=== PATIENT | male | born 1970 | race Caucasian/White ===

== ENCOUNTER 2016-07-07 12:13 | Inpatient (IN) | payer BC, OTHER ==
[~2016-07-07] VITALS: Ht 185.4 cm; Wt 111.5 kg
[~2016-07-07 12:13] MED LIST: ALBUTEROL0.09 MG/A1 IH; ASPIR-LOW81 MG PO; ATIVAN 0.50.5 MG/TAB PO; BENADRYL25 M1 PO; FLEXERIL10 MG PO; NO HOME MEDICATIONS; PRILOSEC40 MG PO
[2016-07-07] MEDS ORDERED: PROTONIX 40MG T40 MG PO (12:47)
[2016-07-07 12:54] LABS: BASO % 0.2 % (0.0-2.0); EOS % 0.2 % (0-4.0); GRAN # 14.5 (1.4-6.5); GRAN % 89.1 % (42.2-75.2); HEMATOCRIT 44.2 % (42.0-52.0); HEMOGLOBIN 15.6 g/dl (13.5-18.0); LYMPH % 6.1 % (20.0-51.0); MEAN CELL VOLUME 87 fl (80.0-100.0); MEAN CORPUSCULAR HEMOGLOBIN 31 pg (27.0-31.0); MEAN CORPUSCULAR HGB CONC 35 g/dl (33.0-37.0); MEAN PLATELET VOLUME 10.1 fl (7.4-10.4); MONO # 0.7 (0.1-0.6); MONO % 4.1 % (1.7-9.3); PLATELET COUNT 269 K/mm3 (130-400); RED BLOOD COUNT 5.07 M/mm3 (4.20-5.60); REDCELL DISTRIBUTION WIDTH-CV 12.7 % (11.5-14.5); WHITE BLOOD COUNT 16.3 K/mm3 (4.8-10.8)
[2016-07-07 13:08] LABS: ALBUMIN 4.1 gm/dL (3.5-5.0); BILIRUBIN,TOTAL 1.7 mg/dL (0.0-1.0); C-REACTIVE PROTEIN 6.1 mg/dL (0.0-0.9); CALCIUM 8.1 mg/dL (8.4-10.2); CREATININE, serum 0.77 mg/dL (0.66-1.25); POTASSIUM 3.8 mmol/L (3.4-5.0); TOTAL PROTEIN 8.3 gm/dL (6.4-8.2)
[2016-07-07 15:17] VITALS: BP 134/80; PULSE 99; TEMP 98.1
[2016-07-07 15:25] VITALS: BP 134/80; PULSE 101; TEMP 98.1
[2016-07-07 20:04] VITALS: BP 146/86; PULSE 113; TEMP 98.2
[2016-07-07 22:43] LABS: PH 6 (5-8); SQUAMOUS EPITHELIAL None Seen /hpf; URINE APPEARANCE Clear; URINE BACTERIA Rare /hpf; URINE BILIRUBIN Negative (NEGATIVE); URINE BLOOD 2+ (NEGATIVE); URINE COLOR Amber; URINE GLUCOSE 1+ (NEGATIVE); URINE KETONE Trace (NEGATIVE); URINE UROBILINOGEN Negative (NEGATIVE); URINE WBC 0-2 /hpf
[2016-07-07 23:00] VITALS: BP 138/87; PULSE 109; TEMP 98.9
[2016-07-08 03:34] VITALS: BP 138/90; PULSE 108; TEMP 97.1
[2016-07-08 07:35] VITALS: BP 134/72; PULSE 110; TEMP 97.4
[2016-07-08 07:53] LABS: ADJUSTED CALCIUM 7.7 mg/dL (8.4-10.2); ALBUMIN 3.5 gm/dL (3.5-5.0); BILIRUBIN,TOTAL 1.7 mg/dL (0.0-1.0); CALCIUM 7.3 mg/dL (8.4-10.2); CREATININE, serum 0.83 mg/dL (0.66-1.25); POTASSIUM 3.6 mmol/L (3.4-5.0); TOTAL PROTEIN 7.3 gm/dL (6.4-8.2)
[2016-07-08 07:56] LABS: BASO # 0.1 (0.0-0.2); BASO % 0.4 % (0.0-2.0); EOS # 0.1 (0.0-0.7); EOS % 0.6 % (0-4.0); GRAN # 10.8 (1.4-6.5); GRAN % 85.6 % (42.2-75.2); HEMOGLOBIN 14.2 g/dl (13.5-18.0); LYMPH # 0.8 (1.2-3.4); LYMPH % 6.1 % (20.0-51.0); MEAN CELL VOLUME 90 fl (80.0-100.0); MEAN CORPUSCULAR HEMOGLOBIN 31 pg (27.0-31.0); MEAN CORPUSCULAR HGB CONC 34 g/dl (33.0-37.0); MEAN PLATELET VOLUME 10.9 fl (7.4-10.4); MONO # 0.9 (0.1-0.6); MONO % 6.8 % (1.7-9.3); PLATELET COUNT 218 K/mm3 (130-400); RED BLOOD COUNT 4.65 M/mm3 (4.20-5.60); REDCELL DISTRIBUTION WIDTH-CV 13.2 % (11.5-14.5); WHITE BLOOD COUNT 12.6 K/mm3 (4.8-10.8)
[2016-07-08 11:44] VITALS: BP 142/96; PULSE 108; TEMP 97.8
[2016-07-08 15:43] VITALS: BP 150/89; PULSE 111; TEMP 98.7
[2016-07-08 19:50] VITALS: BP 131/93; PULSE 112; TEMP 99
[2016-07-08 23:54] VITALS: BP 128/80; PULSE 108; TEMP 99.6
[2016-07-09 03:45] VITALS: BP 139/91; PULSE 112; TEMP 99.8
[2016-07-09 07:42] LABS: BASO % 0.3 % (0.0-2.0); EOS # 0.2 (0.0-0.7); EOS % 1.7 % (0-4.0); GRAN # 8.4 (1.4-6.5); GRAN % 80.9 % (42.2-75.2); LYMPH # 0.9 (1.2-3.4); LYMPH % 8.7 % (20.0-51.0); MEAN CELL VOLUME 91 fl (80.0-100.0); MEAN CORPUSCULAR HGB CONC 33 g/dl (33.0-37.0); MEAN PLATELET VOLUME 11.1 fl (7.4-10.4); MONO # 0.8 (0.1-0.6); MONO % 7.5 % (1.7-9.3); PLATELET COUNT 191 K/mm3 (130-400); RED BLOOD COUNT 3.82 M/mm3 (4.20-5.60); REDCELL DISTRIBUTION WIDTH-CV 13.2 % (11.5-14.5); WHITE BLOOD COUNT 10.3 K/mm3 (4.8-10.8)
[2016-07-09 07:47] LABS: HEMOGLOBIN 11.6 g/dl (13.5-18.0); MEAN CORPUSCULAR HEMOGLOBIN 30 pg (27.0-31.0)
[2016-07-09 07:48] VITALS: BP 132/85; PULSE 109; TEMP 97.9
[2016-07-09 07:48] LABS: HEMATOCRIT 34.7 % (42.0-52.0)
[2016-07-09 07:57] LABS: ALBUMIN 3.2 gm/dL (3.5-5.0); BILIRUBIN,TOTAL 1.9 mg/dL (0.0-1.0); CALCIUM 7.4 mg/dL (8.4-10.2); CREATININE, serum 0.7 mg/dL (0.66-1.25); POTASSIUM 3.3 mmol/L (3.4-5.0); TOTAL PROTEIN 6.7 gm/dL (6.4-8.2)
[2016-07-09 11:15] VITALS: BP 129/83; PULSE 114; TEMP 98.7
[2016-07-09 15:30] VITALS: BP 147/94; PULSE 106; TEMP 97.9
[2016-07-09 19:31] VITALS: BP 160/90; PULSE 114; TEMP 98.7
[2016-07-09 23:28] VITALS: BP 153/87; PULSE 106; TEMP 98.8
[2016-07-10 04:20] VITALS: BP 134/89; PULSE 103; TEMP 98
[2016-07-10 08:14] LABS: MEAN CELL VOLUME 92 fl (80.0-100.0); MEAN CORPUSCULAR HGB CONC 34 g/dl (33.0-37.0); MEAN PLATELET VOLUME 10.2 fl (7.4-10.4); PLATELET COUNT 236 K/mm3 (130-400); RED BLOOD COUNT 3.41 M/mm3 (4.20-5.60); REDCELL DISTRIBUTION WIDTH-CV 13.3 % (11.5-14.5); WHITE BLOOD COUNT 11.3 K/mm3 (4.8-10.8)
[2016-07-10 08:27] LABS: ADD PATHOLOGY DIFF REVIEW NO; HEMATOCRIT 31.5 % (42.0-52.0); HEMOGLOBIN 10.6 g/dl (13.5-18.0); MEAN CORPUSCULAR HEMOGLOBIN 31 pg (27.0-31.0)
[2016-07-10 08:48] LABS: ADJUSTED CALCIUM 8.8 mg/dL (8.4-10.2); ALBUMIN 3.3 gm/dL (3.5-5.0); BILIRUBIN,TOTAL 1.7 mg/dL (0.0-1.0); CALCIUM 8.2 mg/dL (8.4-10.2); CREATININE, serum 0.74 mg/dL (0.66-1.25); POTASSIUM 4.1 mmol/L (3.4-5.0)
[2016-07-10 08:59] VITALS: BP 151/100; PULSE 104; TEMP 98.3
[2016-07-10 10:25] LABS: BAND 21 % (0-10); NEUTROPHILS 64 % (42.0-75.2); PLATELET ESTIMATE NORMAL (NORMAL); TOTAL CELLS COUNTED 100
[2016-07-10 11:53] VITALS: BP 147/95; PULSE 102; TEMP 98.2
[2016-07-10 16:41] VITALS: BP 160/99; PULSE 78; TEMP 98
[2016-07-10 20:02] VITALS: BP 157/94; PULSE 78; TEMP 99.1
[2016-07-10 23:34] VITALS: BP 149/73; PULSE 96; TEMP 98.5
[2016-07-11 04:57] VITALS: BP 145/79; PULSE 97; TEMP 98.5
[2016-07-11 07:55] VITALS: BP 139/81; BP 145/92; PULSE 91; TEMP 98.7
[2016-07-11 08:39] LABS: ADJUSTED CALCIUM 9.3 mg/dL (8.4-10.2); ALBUMIN 3.5 gm/dL (3.5-5.0); BILIRUBIN,TOTAL 1.5 mg/dL (0.0-1.0); CALCIUM 8.9 mg/dL (8.4-10.2); CREATININE, serum 0.68 mg/dL (0.66-1.25); POTASSIUM 3.9 mmol/L (3.4-5.0); TOTAL PROTEIN 7.5 gm/dL (6.4-8.2)
[2016-07-11 11:15] VITALS: BP 143/92; PULSE 96; TEMP 97.6
[2016-07-11 15:46] VITALS: BP 126/94; PULSE 93; TEMP 98.4
[2016-07-11 19:36] VITALS: BP 152/99; PULSE 87; TEMP 98.7
[2016-07-12 00:03] VITALS: BP 137/80; PULSE 83; TEMP 99
[2016-07-12 04:25] VITALS: BP 123/67; PULSE 84; TEMP 98.4
[2016-07-12 08:02] VITALS: BP 130/77; PULSE 81; TEMP 98.2
[2016-07-12 12:41] VITALS: BP 139/97; PULSE 83; TEMP 98.2
[2016-07-12] MEDS ORDERED: TRICOR145 MG PO (14:08)
[2016-07-12 16:00] VITALS: BP 153/96; PULSE 87; TEMP 98.2
== END 2016-07-12 16:15 | disposition home or self-care (01) | DRG 440 ==
LOC: COL.ER 12:13 → MEDICAL 14:02
PROVIDERS: Emergency Medicine; Internal Medicine
DX: K85.20 Alcohol induced acute pancreatitis without necrosis or infection (principal); F10.10 Alcohol abuse, uncomplicated; F41.9 Anxiety disorder, unspecified; E83.52 Hypercalcemia; R73.9 Hyperglycemia, unspecified; E78.1 Pure hyperglyceridemia
CPT/HCPCS: 99223-AI; 99232-AI; 99233-AI; 99239; C9113; J1170; J1885; J2060; J2550; J3480; J7030; Q9967

== ENCOUNTER 2016-07-13 13:49 | Day surgery (SDC) | payer BC ==
[~2016-07-13] VITALS: Ht 185.4 cm; Wt 105.8 kg
[~2016-07-13 13:49] MED LIST changes: +PROTONIX 40MG T40 MG PO; +TRICOR145 MG PO
[2016-07-13 14:37] VITALS: BP 142/96; PULSE 98; TEMP 97
[2016-07-13 15:38] VITALS: BP 130/82; PULSE 94; TEMP 97.2
[2016-07-13 15:50] VITALS: BP 120/80; PULSE 91
[2016-07-13 16:01] VITALS: BP 119/77; PULSE 82
== END 2016-07-13 16:15 | disposition home or self-care (01) ==
LOC: SDCO 13:49
DX: K29.30 Chronic superficial gastritis without bleeding (principal); K21.9 Gastro-esophageal reflux disease without esophagitis; K85.90 Acute pancreatitis without necrosis or infection, unspecified; E83.52 Hypercalcemia; F17.220 Nicotine dependence, chewing tobacco, uncomplicated; F41.8 Other specified anxiety disorders; Z87.11 Personal history of peptic ulcer disease; Z82.49 Family history of ischemic heart disease and other diseases of the circulatory system
CPT/HCPCS: OP; J2250; J3010

== ENCOUNTER → 2016-09-04 | Outpatient (REF) | LOC: ZLAB.WCH 08:43 | DX: Z01.89 Encounter for other specified special examinations (principal) | CPT/HCPCS: G0103 ==

== ENCOUNTER → 2016-09-13 | Outpatient (CLI) | payer BC, OTHER | LOC: COL.RAD 13:15 | DX: S73.192A Other sprain of left hip, initial encounter (principal); M94.8X8 Other specified disorders of cartilage, other site | CPT/HCPCS: A9585; Q9967 ==

== ENCOUNTER → 2018-05-26 | Outpatient (REF) | LOC: ZLAB.WCH 16:11 | DX: Z01.89 Encounter for other specified special examinations (principal) | CPT/HCPCS: G0103 ==